=== PATIENT | male | born 1965 | race Caucasian/White ===

== ENCOUNTER 2017-09-16 18:53 | Emergency (ER) | payer MEDICAID ==
[~2017-09-16] VITALS: Ht 182.9 cm; Wt 97.5 kg
[2017-09-16 18:53] VITALS: BP 114/84
--- NOTE | 2017-09-16 19:34 | Emergency Room Report ---
History of Present Illness General Chief Complaint: Generalized Weakness Source: Patient Present Illness HPI Patient was recently discharged from [facility]. Patient apparently lives in a long-term house. Patient states that he was wandering around the streets became weak paramedics was contacted and patient was brought here for further evaluation. Patient denies any fever chest pain shortness of breath. Patient denies any nausea vomiting diarrhea chills. Denies any other complaints except for being hungry and a little thirsty. He agrees to get some food. No other complaints are noted.No other modifying factors. No other associated signs and symptoms. No other complaints were noted. Allergies: Coded Allergies: No Known Allergies (Unverified , 09/16/17) Patient History Past Medical History: other - Liver disea Past Surgical History: none Pertinent Family History: none Social History: Reports: alcohol use - In the past; Denies: smoking, drug use Reviewed Nursing Documentation: PMH: Agreed; PSxH: Agreed Review of Systems All Other Systems: negative except mentioned in HPI Physical Exam Vital Signs Date Time Temp Pulse Resp B/P (MAP) Pulse Ox O2 Delivery O2 Flow Rate FiO2 09/16/17 18:49 98.4 103 18 114/84 96 Room Air 98.4 Sp02 EP Interpretation: reviewed, normal General Appearance: normal inspection, well appearing, no apparent distress, alert Head: atraumatic Eyes: bilateral eye normal inspection ENT: normal ENT inspection, hearing grossly normal, normal voice Neck: normal inspection, full range of motion, supple, no bony tend Respiratory: normal inspection, lungs clear, normal breath sounds, no respiratory distress, no retraction, no wheezing Cardiovascular #1: regular rate, rhythm, no edema Gastrointestinal: normal inspection, normal bowel sounds, non tender, soft, no guarding, no hernia Genitourinary: no CVA tenderness Musculoskeletal: normal inspection, back normal, normal range of motion Neurologic: normal inspection, alert, responsive, speech normal Psychiatric: normal inspection, judgement/insight normal, mood/affect normal Skin: normal inspection, normal color, no rash Medical Decision Making Diagnostic Impression: Primary Impression: Weakness ER Course Patient presents emergency department today with generalized weakness. Differential diagnoses include electrolyte abnormality, dehydration, heat stroke , hunger. Patient's exam appears to be fairly stable. Patient is declining laboratory workup. I do not see any reason to do any laboratory testing especially given patient was recently discharged from the hospital and appears be in good health. Therefore we will provide patient with food as per her request and subsequently will discharge patient back to his long-term house or his social situation advise return emergency room for any worsening symptoms and as needed. Last Vital Signs Date Time Temp Pulse Resp B/P (MAP) Pulse Ox O2 Delivery O2 Flow Rate FiO2 09/16/17 18:53 98.4 80 18 114/84 97 Room Air 98.4 Status: improved Disposition: HOME, SELF-CARE Condition: Stable Patient Instructions: Pilo Hess MD Sep 16, 2017 19:34
[2017-09-16 19:40] VITALS: BP 114/84
== END 2017-09-16 19:55 | disposition home or self-care (01) ==
LOC: EDBD 18:53 → EMR 18:59
DX: R53.1 Weakness (principal)
CPT/HCPCS: 99282

== ENCOUNTER 2017-09-16 23:20 | Emergency (ER) | payer MEDICAID ==
[~2017-09-16] VITALS: Ht 182.9 cm; Wt 97.5 kg
[2017-09-16 23:45] VITALS: BP 121/77
[2017-09-17 01:25] VITALS: BP 121/78
--- NOTE | 2017-09-17 01:36 | Emergency Room Report ---
History of Present Illness General Chief Complaint: General Complaint Source: Patient Present Illness HPI Is a 52-year-old male with a history of cirrhosis and ascites secondary to alcohol abuse. He still drinks alcohol. He presents with chief complaint of jaundice. He was just here earlier today. He was just discharged from [facility] yesterday for the same thing. It appeared that he goes to different hospital. He was in a care home house but he left there because he said he didn' t like it. He's been on the street. He denies any complaint other than worried about his jaundice. I suspect that he just want a place to sleep. He denies any pain. Denies any fever chills. Denies any nausea or vomiting. Allergies: Coded Allergies: No Known Allergies (Unverified , 09/16/17) Patient History Past Medical History: see triage record, old chart reviewed Past Surgical History: other Pertinent Family History: none Social History: Reports: alcohol use Immunizations: other Reviewed Nursing Documentation: PMH: Agreed; PSxH: Agreed Nursing Documentation-PMH Hx Gastrointestinal Problems: Yes - LIVER CIRRHOSIS Review of Systems Eye: Denies: eye pain, blurred vision ENT: Denies: ear pain, nose congestion, throat swelling Respiratory: Denies: cough, shortness of breath Cardiovascular: Denies: chest pain, palpitations Gastrointestinal: Denies: abdominal pain, diarrhea, nausea, vomiting Musculoskeletal: Denies: back pain, joint pain Skin: Denies: rash Neurological: Denies: headache, numbness Endocrine: Denies: increased thirst, increased urine Hematologic/Lymphatic: Denies: easy bruising All Other Systems: negative except mentioned in HPI Physical Exam Vital Signs Date Time Temp Pulse Resp B/P (MAP) Pulse Ox O2 Delivery O2 Flow Rate FiO2 09/16/17 23:24 97.4 107 16 119/77 97 Room Air 97.3 vitals normal Sp02 EP Interpretation: reviewed, normal General Appearance: well appearing, alert, Chronically Ill Head: normocephalic, atraumatic Eyes: bilateral eye PERRL, bilateral eye EOMI, bilateral eye scleral icterus ENT: hearing grossly normal, normal pharynx Neck: full range of motion, supple, no meningismus Respiratory: chest non-tender, lungs clear, normal breath sounds Cardiovascular #1: regular rate, rhythm, no murmur Gastrointestinal: normal bowel sounds, non tender, no mass, no organomegaly, no bruit, other - ascites Musculoskeletal: back normal, normal range of motion Neurologic: alert, oriented x3 Psychiatric: mood/affect normal Skin: warm/dry, jaundice Medical Decision Making Diagnostic Impression: Primary Impression: Alcoholic cirrhosis of liver with ascites ER Course Patient resents with cirrhosis with ascites. His jaundice is chronic and would not get better unless he get a new liver. There is no need for any blood work. He just want a place to sleep. He said he will leave in the morning. He does not want to go back to the care home house. Criteria for 5150. Last Vital Signs Date Time Temp Pulse Resp B/P (MAP) Pulse Ox O2 Delivery O2 Flow Rate FiO2 09/16/17 23:45 97.3 72 16 121/77 98 Room Air 97.3 Status: unchanged Disposition: HOME, SELF-CARE Condition: Stable Referrals: NOT CHOSEN IPA/,REFERRING (PCP) Additional Instructions: Follow-up with your Dr. in 7 days. Return if symptom worsen. KOREY GARNICA M.D. Sep 17, 2017 01:36
[2017-09-17 05:25] VITALS: BP 112/77
[2017-09-17 05:30] VITALS: BP 112/77
== END 2017-09-17 05:30 | disposition home or self-care (01) ==
LOC: EMR 23:40
DX: K70.31 Alcoholic cirrhosis of liver with ascites (principal)
CPT/HCPCS: 99283

== ENCOUNTER 2017-09-17 08:32 | Emergency (ER) | payer MEDICAID ==
[~2017-09-17] VITALS: Ht 182.9 cm; Wt 68.0 kg
[2017-09-17 08:34] VITALS: BP 121/78
[2017-09-17 09:09] VITALS: BP 121/78
--- NOTE | 2017-09-17 09:29 | Emergency Room Report ---
History of Present Illness General Chief Complaint: General Complaint Source: Patient, EMS Present Illness HPI 52-year-old male presents ED for evaluation. Patient brought in by EMS. Patient was on the street and bystanders called 911. Patient states he is trying to get home. [place] Patient denies any medical complaints. Patient states that he has been seen at a few hospitals in the last few days. Patient cannot provide specific explanation as to why he has not gone home yet. Patient denies any current alcohol use. History of cirrhosis. No other aggravating relieving factors. Denies any other associated symptoms Allergies: Coded Allergies: No Known Allergies (Unverified , 09/16/17) Patient History Past Medical History: other - cirrhosis Pertinent Family History: none Social History: Denies: smoking, alcohol use, drug use Immunizations: UTD Reviewed Nursing Documentation: PMH: Agreed; PSxH: Agreed Nursing Documentation-PM Past Medical History: No History, Except For Review of Systems All Other Systems: negative except mentioned in HPI Physical Exam Vital Signs Date Time Temp Pulse Resp B/P (MAP) Pulse Ox O2 Delivery O2 Flow Rate FiO2 09/17/17 08:26 97.5 102 18 117/75 97 97.5 Sp02 EP Interpretation: reviewed, normal General Appearance: no apparent distress, alert, GCS 15, non-toxic Head: normocephalic, atraumatic Eyes: bilateral eye normal inspection, bilateral eye PERRL ENT: hearing grossly normal, normal pharynx, no angioedema, normal voice Neck: full range of motion, supple/symm/no masses Respiratory: chest non-tender, lungs clear, normal breath sounds, speaking full sentences Cardiovascular #1: regular rate, rhythm, no edema Cardiovascular #2: 2+ carotid (R), 2+ carotid (L), 2+ radial (R), 2+ radial (L) , 2+ dorsalis pedis (R), 2+ dorsalis pedis (L) Gastrointestinal: normal bowel sounds, non tender, soft, non-distended, no guarding, no rebound Rectal: deferred Genitourinary: normal inspection, no CVA tenderness Musculoskeletal: back normal, gait/station normal, normal range of motion, non- tender Neurologic: alert, oriented x3, responsive, motor strength/tone normal, sensory intact, speech normal Psychiatric: judgement/insight normal, memory normal, mood/affect normal, no suicidal/homicidal ideation Reflexes: 3+ bicep (R), 3+ bicep (L), 3+ tricep (R), 3+ tricep (L), 3+ knee (R) , 3+ knee (L) Skin: normal color, no rash, warm/dry, well hydrated Lymphatic: no adenopathy Medical Decision Making Diagnostic Impression: Primary Impression: Housing lack Additional Impression: Cirrhosis Qualified Codes: K74.60 - Unspecified cirrhosis of liver ER Course Hospital Course 52-year-old male presents to ED, stating he has lost. Trying to get home Clinical course Patient placed on stretcher. After initial history, physical exam reveals a middle-aged male in no acute distress. Physical exam unremarkable. I reviewed EMR. Patient was seen here twice in the last day for similar presentation. Patient was medically cleared and subsequently discharged. Patient was also seen at [facility] as per EMS for similar complaint I spoke to the patient, patient states he did not go home yet because his ex girlfriend would not allow him to. I offered patient option for long-term referrals which he accepted but states that he will try to go to his ex- girlfriend's house first. Patient notes the address patient is awake alert oriented 3. Vital stable. ambulating without difficulty. There is no acute medical reason for this patient's visit. Patient given bus tokens and long-term referral Diagnosis - housing lack, cirrhosis stable and discharged to home. Followup with PMD. Return to ED if symptoms recur or worsen Last Vital Signs Date Time Temp Pulse Resp B/P (MAP) Pulse Ox O2 Delivery O2 Flow Rate FiO2 09/17/17 08:34 97.8 95 18 121/78 97 97.8 Status: improved Disposition: HOME, SELF-CARE Condition: Stable Patient Instructions: Alcoholic Liver Disease, [id number] Cain Hercules MD Sep 17, 2017 09:29
== END 2017-09-17 09:09 | disposition home or self-care (01) ==
LOC: EDBD 08:32 → EMR 08:50
DX: K74.60 Unspecified cirrhosis of liver (principal); Z59.0 Homelessness
CPT/HCPCS: 99284